=== PATIENT | female | born 1985 | race American Indian/Alaskan Native ===

== ENCOUNTER 2018-02-24 11:10 | Emergency (ER) | payer MEDICAID, OTHER ==
--- NOTE | 2018-02-24 11:58 | Emergency Department Report ---
Chief Complaint: Wound/Laceration Stated Complaint: BREAST REDUCTION/CHEST DRAINS Time Seen by Provider: 02/24/18 11:37 - HPI History of Present Illness: Patient is a 33-year-old female who presents to ED status post bilateral breast reduction on February 18. Patient presents stating that she needs her change removed. Patient's issues was to follow-up today and have it removed today. She denies breast pain, signs of infection or pus light drainage. She denies fevers/chills/nausea vomiting abdominal pain and chest pain. - ROS Review of Systems: As noted in HPI, denies others - Exam Vital Signs: Vital Signs 02/24/18 11:15 Temperature 98.4 F Pulse Rate 99 H Respiratory 18 Rate Blood Pressure 129/85 O2 Sat by Pulse 99 Oximetry Physical Exam: GENERAL: Alert and oriented x3, no apparent distress, Normal Gait, atraumatic. BREAST: Symetrical, Supple bilaterally, No Masses, lumps, lesions, ulcerations. Breasts draining tubes attached to bilateral breasts, currently draining, pump MT due to patient states she just emptied the pump. SKIN: Warm and dry, No lesions, No ulceration or induration present. MSE screening note: Focused history and physical exam performed. Due to findings the following was ordered: ED Disposition for MSE Clinical Impression: Status post breast reduction Disposition: [id number] TO HOME OR SELFCARE Is pt being admited?: No Does the pt Need Aspirin: No Condition: Stable Additional Instructions: Make sure to follow up with the Dr. Edwards for [facility] specialist as discussed. If you have any worsening symptoms or develop new symptoms please return to ED immediately. Referrals: PATRICIO EDWARDS MD [Staff Physician] - 3-5 Days [facility] [Outside] - 3-5 Days [facility] [Outside] - 3-5 Days Forms: Work/School Release Form(ED) Time of Disposition: 11:59
== END 2018-02-24 12:06 | disposition home or self-care (01) ==
LOC: ED 11:10
CPT/HCPCS: 99282